=== PATIENT | female | born 2000 | race Two or more races ===

== ENCOUNTER → 2024-10-30 | Outpatient (CLI) | payer MEDICAID, SELFPAY ==
--- NOTE | 2024-10-30 08:00 | XR_ITS ---
Examination: Abdomen sonogram, complete Date and time of exam: October 30, 2024 0820 hours INDICATIONS: Right upper abdominal pain beginning one month ago. Technique: Multiple real-time grayscale transabdominal sonographic images of the abdomen have been obtained. Findings: Normal gallbladder. Normal common bile duct 0.2 cm Pancreatic head 1.3 cm Aorta not enlarged. Liver 13.2 cm fatty infiltration no focal liver lesions. Normal hepatopedal portal venous flow Patent IVC Right kidney 10.6 cm renal cortex 1.7 cm Left kidney 10.3 cm cortex 2.4 cm No hydronephrosis. Spleen 9.6 cm IMPRESSION: Normal gallbladder Fatty infiltration throughout the liver no focal liver lesions
== END | disposition home or self-care (01) ==
LOC: CDIM 07:57
DX: K76.0 Fatty (change of) liver, not elsewhere classified (principal)
CPT/HCPCS: 76700